=== PATIENT | male | born 1955 | race African-American/Black ===

== ENCOUNTER 2021-02-24 00:02 | Emergency (ER) | payer OTHER ==
[~2021-02-24] VITALS: Ht 165.1 cm; Wt 86.2 kg
[2021-02-24 00:31] LABS: POTASSIUM 3.7 mmol/L (3.6-5.2); SODIUM 132 mmol/L (136-145)
[2021-02-24 00:42] LABS: PARTIAL THROMBOPLASTIN TIME 25.6 SECONDS (24.5-33.6)
[2021-02-24 00:48] LABS: PLATELET COUNT 260 K/uL (142-355)
[2021-02-24 07:00] VITALS: BP 108/68; TEMP 98.4
== END 2021-02-24 07:00 | disposition home or self-care (01) ==
LOC: ED 00:02
PROVIDERS: Hospitalist
DX: F10.129 Alcohol abuse with intoxication, unspecified (principal); Y90.8 Blood alcohol level of 240 mg/100 ml or more
CPT/HCPCS: 80053; 80320; 82550; 82553; 83880; 84484; 85027; 85610; 85730; 93005; 96365; 96366; 96375; 99284; J2405; J3411; J3475; J3490